=== PATIENT | male | born 1980 ===

== ENCOUNTER 2017-12-15 12:44 | Emergency (ER) | payer BC ==
[2017-12-15 13:00] VITALS: BMI 29.0
[2017-12-15 13:06] VITALS: RESP 18; TEMP 98.9
--- NOTE | 2017-12-15 14:44 | ED PDOC ---
Arrival/HPI - General Chief Complaint: Lower Extremity Problem/Injury Time Seen by Provider: 12/15/17 14:04 Historian: Patient, Spouse - History of Present Illness Narrative History of Present Illness (Text): 12/15/17 14:44 This 37 yo male with pmh htn, allergic to Motrin, presents to this Emergency department complaining of right heel pain x 3 days. Patient denies trauma, skin rash, leg swelling, recent travel, calf pain, or ankle pain. Time/Duration: Other (3 days) Quality: Aching, Burning Context: Home Past Medical History - Provider Review Nursing Documentation Reviewed: Yes - Infectious Disease Hx of Infectious Diseases: None - Tetanus Immunization Tetanus Immunization: Unknown - Cardiac Hx Hypertension: Yes - Pulmonary Hx Respiratory Disorders: No - Neurological Hx Neurological Disorder: No - HEENT Hx HEENT Disorder: No - Renal Hx Renal Disorder: No - Endocrine/Metabolic Hx Endocrine Disorders: No - Hematological/Oncological Hx Blood Disorders: No - Integumentary Hx Dermatological Disorder: No - Musculoskeletal/Rheumatological Hx Musculoskeletal Disorders: No - Gastrointestinal Hx Gastrointestinal Disorders: No - Genitourinary/Gynecological Hx Genitourinary Disorders: No - Psychiatric Hx Psychophysiologic Disorder: No Hx Substance Use: No - Surgical History Hx Cholecystectomy: Yes - Anesthesia Hx Anesthesia: Yes Hx Anesthesia Reactions: No Hx Malignant Hyperthermia: No - Suicidal Assessment Feels Threatened In Home Enviroment: No Family/Social History - Physician Review Nursing Documentation Reviewed: Yes Family/Social History: Other (noncontributory) Smoking Status: Heavy Smoker > 10 Cigarettes Daily Hx Alcohol Use: No Hx Substance Use: No Hx Substance Use Treatment: No Allergies/Home Meds Allergies/Adverse Reactions: Allergies ibuprofen [From Motrin] Allergy (Verified 12/15/17 13:00) RASH Home Medications: Home Meds Medication Instructions Recorded Confirmed Amlodipine Bes/Olmesartan Med 1 tab PO DAILY 12/15/17 12/15/17 [Germaine 10-40 mg Tablet] Review of Systems - Review of Systems Constitutional: Normal. absent: Fatigue, Weight Change, Fevers, Night Sweats Eyes: Normal ENT: Normal Respiratory: Normal Cardiovascular: Normal Gastrointestinal: Normal Genitourinary Male: Normal Musculoskeletal: Other (see hpi) Skin: Normal Neurological: Normal Endocrine: Normal Hemo/Lymphatic: Normal Psychiatric: Normal Physical Exam Vital Signs Temp Pulse Resp BP Pulse Ox 12/15/17 12:45 98.9 F 81 18 125/82 96 Temperature: Afebrile Blood Pressure: Normal Pulse: Regular Respiratory Rate: Normal Appearance: Positive for: Well-Appearing, Non-Toxic, Comfortable Pain Distress: None Mental Status: Positive for: Alert and Oriented X 3 - Systems Exam Head: Present: Atraumatic, Normocephalic Pupils: Present: PERRL Extroacular Muscles: Present: EOMI Conjunctiva: Present: Normal Mouth: Present: Moist Mucous Membranes Neck: Present: Normal Range of Motion Respiratory/Chest: Present: Clear to Auscultation, Good Air Exchange. No: Respiratory Distress, Accessory Muscle Use Cardiovascular: Present: Regular Rate and Rhythm, Normal S1, S2. No: Murmurs Abdomen: Present: Normal Bowel Sounds. No: Tenderness, Distention, Peritoneal Signs Back: Present: Normal Inspection Upper Extremity: Present: Normal Inspection. No: Cyanosis, Edema Lower Extremity: Present: NORMAL PULSES, Normal ROM, Neurovascularly Intact, Capillary Refill < 2 s, Other ((+) pes planus. (+) mild tenderness on dominique sole aspect of right foot near anterior heel. No lesion, abscess. Rodriguez test was negative, no calf tenderness, no leg swelling/edema, no posterior ankle tenderness.). No: Edema, CALF TENDERNESS, Anais's Sign, Swelling, Erythema, Deformity, Temperature Abnormalties Neurological: Present: GCS=15, CN II-XII Intact, Speech Normal, Motor Func Grossly Intact, Normal Sensory Function, Normal Cerebellar Funct, Gait Normal Skin: Present: Warm, Dry, Normal Color. No: Rashes Psychiatric: Present: Alert, Oriented x 3, Normal Insight, Normal Concentration Medical Decision Making ED Course and Treatment: 12/15/17 14:44 I reviewed the risk of using Prednisone with patient which includes AVN, osteoporosis, diabetes, glaucoma, renal failure, liver failure, or worsen of rash. He understand he could stop Prednisone once rash improved 12/15/17 15:28 Patient was recommended to f/u [facility] if symptoms becomes chronic or persist. Use crutches, RICE. To stretch foot every morning, use plantar fasciitis boot at bedtime, and to use good shoe wear with arch support. 12/15/17 15:35 Patient is allergic to NSAIDs, I will recommended Prednisone for 3 more days only. Re-evaluation Time: 15:30 Reassessment Condition: Re-examined, Improved - RAD Interpretation Narrative RAD Interpretations (Text): 12/15/17 15:33 Foot x-rays: (+) posterior heel spur. no Fx. Radiology Orders: 12/15/17 14:43 FOOT RIGHT 3 VIEWS ROUTINE [RAD] Stat - Medication Orders Current Medication Orders: Discontinued Medications Prednisone (Prednisone Tab) 60 mg PO STAT ONE Stop: 12/15/17 14:44 Last Admin: 12/15/17 15:08 Dose: 60 mg Tramadol HCl (Ultram) 50 mg PO STAT STA Stop: 12/15/17 14:44 Last Admin: 12/15/17 15:08 Dose: 50 mg MAR Pain Assessment Document 12/15/17 15:08 GMD (Rec: 12/15/17 15:08 GMD [id number]) Pain Reassessment Is this a pain reassessment? No Sleep Is patient sleeping during reassessment? No Presence of Pain Presence of Pain Yes Disposition/Present on Arrival - Present on Arrival Any Indicators Present on Arrival: No History of DVT/PE: No History of Uncontrolled Diabetes: No Urinary Catheter: No History of Decub. Ulcer: No History Surgical Site Infection Following: None - Disposition Have Diagnosis and Disposition been Completed?: Yes Diagnosis: Plantar fasciitis of right foot, Pes planus of both feet Disposition: HOME/ ROUTINE Disposition Time: 15:31 Patient Plan: Transfer To Patient Problems: Current Active Problems Problem Status Onset Pes planus of both feet Acute Plantar fasciitis of right foot Acute Condition: GOOD Discharge Instructions (ExitCare): Plantar Fasciitis (ED) Additional Instructions: Call private doctor for follow up visit in 1-2 days. Call prepress specialist office for revaluation. use crutches till pain improves. Remove leatha bandage at bedtime. Return to emergency if pain worsen. Prescriptions: Acetaminophen with Codeine [Tylenol with Codeine #3 Tablet] 1 each PO Q6H PRN # 12 tablet PRN Reason: Pain, Severe (8-10) Prednisone [Deltasone] 60 mg PO DAILY #9 tablet Referrals: Ernesto Doyle MD [Primary Care Provider] - Follow up with primary Tamara Morfin DPM [Staff Provider] - Follow up with primary Forms: [employer] (Romanian), WORK NOTE
--- NOTE | 2017-12-15 15:43 | RAD ---
PROCEDURE: Right Foot Radiographs. HISTORY: pain COMPARISON: None. FINDINGS: BONES: Bone alignment and mineralization are normal. There is no acute displaced fracture or bone destruction. There is a prominent dorsal calcaneal enthesophyte. JOINTS: Normal. SOFT TISSUES: Normal. OTHER FINDINGS: None. IMPRESSION: No acute fracture or dislocation.
[2017-12-15 15:48] VITALS: BP 126/79; PULSE 78; O2SAT 100
== END 2017-12-15 15:49 | disposition home or self-care (01) ==
LOC: ED 12:44
DX: M72.2 Plantar fascial fibromatosis (principal); M21.42 Flat foot [pes planus] (acquired), left foot; M21.41 Flat foot [pes planus] (acquired), right foot

== ENCOUNTER 2018-05-12 13:20 | Emergency (ER) | payer BC ==
[2018-05-12 13:20] VITALS: BMI 29.0
[2018-05-12 13:39] VITALS: RESP 18; TEMP 98.2; O2SAT 98
--- NOTE | 2018-05-12 13:55 | ED PDOC ---
Arrival/HPI - General Historian: Patient, Spouse - History of Present Illness Time/Duration: 24 hours Symptom Onset: Sudden Symptom Course: Worsening Quality: Aching, Pressure Severity Level: 6 Activities at Onset: Light Context: Home <Rajwinder Barry - Last Filed: 05/13/18 10:54> <AngelineEran - Last Filed: 05/14/18 13:56> - General Chief Complaint: Eye Problem Time Seen by Provider: 05/12/18 13:39 - History of Present Illness Narrative History of Present Illness (Text): 05/12/18 13:55 Pt is 37 yr old male who presents to the emergency department for left eyelid swelling x 1 day. Pt says he was in the yard yesterday cutting grass and noticed after, the left upper eyelid began to swell. Reports using OTC Visine for allergies but no change in status. When he woke up this morning, the lashes were 'glued' together from a white discharge. Also states that last week he had a similar episode with the right eye which resolved on its own. Denies allergies , trauma, eye pain, blurred vision, colored dishcarge, fever, chills, headache, SOB, CP, or any other complaints. (Rajwinder Barry) Past Medical History - Provider Review Nursing Documentation Reviewed: Yes - Travel History Have you recently traveled outside [place] w/in the past 3 mons?: No - Infectious Disease Hx of Infectious Diseases: None - Tetanus Immunization Tetanus Immunization: Unknown - Cardiac Hx Hypertension: Yes - Pulmonary Hx Respiratory Disorders: No - Neurological Hx Neurological Disorder: No - HEENT Hx HEENT Disorder: No - Renal Hx Renal Disorder: No - Endocrine/Metabolic Hx Endocrine Disorders: No - Hematological/Oncological Hx Blood Disorders: No - Integumentary Hx Dermatological Disorder: No - Musculoskeletal/Rheumatological Hx Musculoskeletal Disorders: No - Gastrointestinal Hx Gastrointestinal Disorders: No - Genitourinary/Gynecological Hx Genitourinary Disorders: No - Psychiatric Hx Psychophysiologic Disorder: No Hx Substance Use: No - Surgical History Hx Cholecystectomy: Yes - Anesthesia Hx Anesthesia: Yes Hx Anesthesia Reactions: No Hx Malignant Hyperthermia: No - Suicidal Assessment Feels Threatened In Home Enviroment: No <Rajwinder Barry - Last Filed: 05/13/18 10:54> Family/Social History - Physician Review Nursing Documentation Reviewed: Yes Family/Social History: Unknown Family HX Smoking Status: Heavy Smoker > 10 Cigarettes Daily Hx Alcohol Use: No Hx Substance Use: No Hx Substance Use Treatment: No <Rajwinder Barry - Last Filed: 05/13/18 10:54> Allergies/Home Meds <Rajwinder Barry - Last Filed: 05/13/18 10:54> <Eran Marcus - Last Filed: 05/14/18 13:56> Allergies/Adverse Reactions: Allergies ibuprofen [From Motrin] Allergy (Verified 05/12/18 13:25) RASH Home Medications: Home Meds Medication Instructions Recorded Confirmed Amlodipine Bes/Olmesartan Med 1 tab PO DAILY 12/15/17 05/12/18 [Germaine 10-40 mg Tablet] Review of Systems - Review of Systems Constitutional: Normal. absent: Fatigue, Weight Change, Fevers Eyes: Normal, Other (periorbital edema with clear d/c on the left eye). absent : Vision Changes, Photophobia, Eye Pain ENT: Normal. absent: Hearing Changes Respiratory: Normal. absent: SOB Cardiovascular: Normal. absent: Chest Pain Gastrointestinal: Normal. absent: Abdominal Pain Genitourinary Male: Normal Musculoskeletal: Normal Skin: Normal. absent: Rash Neurological: Normal. absent: Headache, Dizziness, Focal Weakness Endocrine: Normal Hemo/Lymphatic: Normal Psychiatric: Normal <Rajwinder Barry - Last Filed: 05/13/18 10:54> Physical Exam Vital Signs Reviewed: Yes Temperature: Afebrile Blood Pressure: Normal Pulse: Regular Respiratory Rate: Normal Appearance: Positive for: Well-Appearing, Non-Toxic, Comfortable Pain Distress: Mild Mental Status: Positive for: Alert and Oriented X 3 - Systems Exam Head: Present: Atraumatic, Normocephalic Pupils: Present: PERRL. No: Sluggish, Non-Reactive Extroacular Muscles: Present: EOMI. No: Gaze Palsy, Entrapment Conjunctiva: Present: Normal, Injected, Other (periorbital edema with clear d/c , left eye) Mouth: Present: Moist Mucous Membranes Neck: Present: Normal Range of Motion Respiratory/Chest: Present: Clear to Auscultation, Good Air Exchange. No: Respiratory Distress, Accessory Muscle Use, Wheezes, Decreased Breath Sounds Cardiovascular: Present: Regular Rate and Rhythm, Normal S1, S2. No: Murmurs Abdomen: No: Tenderness, Distention, Peritoneal Signs Upper Extremity: Present: Normal Inspection. No: Cyanosis, Edema Lower Extremity: No: Edema Neurological: Present: GCS=15, CN II-XII Intact, Speech Normal, Gait Normal Skin: Present: Warm, Dry, Normal Color. No: Rashes Lymphatic: No: Cervical Adenopathy Psychiatric: Present: Alert, Oriented x 3, Normal Insight, Normal Concentration <Rajwinder Barry - Last Filed: 05/13/18 10:54> Vital Signs Temp Pulse Resp BP Pulse Ox 05/12/18 16:00 83 18 125/72 98 05/12/18 13:23 98.2 F 88 18 127/70 98 Medical Decision Making <Rajwinder Barry - Last Filed: 05/13/18 10:54> <Eran Marcus - Last Filed: 05/14/18 13:56> ED Course and Treatment: 05/12/18 14:06 Impression Pt is 37 yr old male who presents to the emergency department for left eyelid swelling x [address] w/o contrast to R/O orbital cellulitis assess and dispo Progress note 05/12/18 15:02 IMPRESSION: Mild left-sided periorbital soft tissue swelling likely representing a preseptal cysts periorbital cellulitis. No evidence of postseptal extension of inflammation. Mild mucoperiosteal inflammatory changes left maxillary antrum with minimal mid linear mucosal thickening right maxillary antrum Discussed results with pt and spouse; advised Augmentin x 10 days and warm compresses over the eyes F/u with recommended director project management in the next 24-48 hrs Advised good hand hygiene and avoid sharing towels and touching eyes (Rajwinder Barry) Patient with NO pain with eye movements. No fever. No nausea. No headache, no proptosis. Currently no purulent drainage. Very minimal left eye conjunctival injection. ? allergic component to symptoms advised warm compresses however stressed antibiotics for possible periorbital cellulitis. CT AND EXAM currently not consistent with orbital cellulitis. No visual acuity or visual field deficits. Advised follow-up with opthamologist. (Eran Marcus) - RAD Interpretation Narrative RAD Interpretations (Text): 05/12/18 15:02 HISTORY: R/O Orbital Cellulitis COMPARISON: None. TECHNIQUE: Contiguous axial CT images of the maxillofacial bones were obtained without contrast. Coronal and sagittal reformats were generated. Radiation dose: Total exam DLP = 915.22 mGy-cm. This CT exam was performed using one or more of the following dose reduction techniques: Automated exposure control, adjustment of the mA and/or kV according to patient size, and/or use of iterative reconstruction technique. FINDINGS: NASAL BONES: Unremarkable the). ORBITS: There is minor left periorbital soft tissue swelling, all which appears be preseptal in location. Findings may represent a cellulitis. No evidence of postseptal on inflammatory changes. Orbits and contents otherwise unremarkable. Globes intact and lenses appropriately located. There are no retrobulbar hemorrhages or collections. Optic nerves and extraocular musculature unremarkable. PARANASAL SINUSES/ MASTOIDS: There appears to be a relatively large lobulated mucous retention cyst left maxillary antrum with minimal linear mucosal thickening as well. . Minimal mucosal thickening right maxillary antrum. . Minor mucosal thickening ethmoid air complex. MAXILLA: Unremarkable. MANDIBLE/ TEMPOROMANDIBULAR JOINTS: Unremarkable. SKULL BASE: Unremarkable. TEMPORAL BONES: Middle ears and mastoid grossly unremarkable. OTHER FINDINGS: None. IMPRESSION: Mild left-sided periorbital soft tissue swelling likely representing a preseptal cysts periorbital cellulitis. No evidence of postseptal extension of inflammation. Mild mucoperiosteal inflammatory changes left maxillary antrum with minimal mid linear mucosal thickening right maxillary antrum (Rajwinder Barry) Radiology Orders: 05/12/18 13:54 ORBITS/ FACIALS W/O CONTRAST [CT] Stat - Medication Orders Current Medication Orders: Discontinued Medications Amoxicillin/Clavulanate Potassium (Augmentin 875 Mg-125 Mg Tab) 1 tab PO STAT STA PRN Reason: Protocol Stop: 05/12/18 15:45 Last Admin: 05/12/18 15:58 Dose: 1 tab Disposition/Present on Arrival - Present on Arrival Any Indicators Present on Arrival: Yes History of DVT/PE: No History of Uncontrolled Diabetes: No Urinary Catheter: No History of Decub. Ulcer: No History Surgical Site Infection Following: None - Disposition Have Diagnosis and Disposition been Completed?: Yes Disposition Time: 15:24 Patient Plan: Discharge <Rajwinder Barry - Last Filed: 05/13/18 10:54> - Present on Arrival Any Indicators Present on Arrival: No <Eran Marcus - Last Filed: 05/14/18 13:56> - Disposition Diagnosis: Blepharitis of eyelid of left eye, Periorbital cellulitis of left eye Disposition: HOME/ ROUTINE Condition: STABLE Discharge Instructions (ExitCare): Blepharitis, Cellulitis (ED) Additional Instructions: THELMA MILAN, thank you for letting us take care of you today. Your provider was Eran Marcus MD and ANABELLE Barry and you were treated for LEFT EYELID SWELLING ( PERIORBITAL CELLULITIS). The emergency medical care you received today was directed at your acute symptoms. If you were prescribed any medication, please fill it and take as directed. It may take several days for your symptoms to resolve. Return to the Emergency Department if your symptoms worsen, do not improve, or if you have any other problems. Please see your Primary Care Doctor in the next few days for follow up. If eye inflammations continues to worsen, return to the ED. Please contact your doctor or call one of the physicians/clinics you have been referred to that are listed on the Patient Visit Information form that is included in your discharge packet. Bring any paperwork you were given at discharge with you along with any medications you are taking to your follow up visit. Our treatment cannot replace ongoing medical care by a primary care provider outside of the emergency department. Thank you for allowing the [email or web address] team to be part of your care today. If you had an X-Ray or CT scan: A Radiologist will review the ED reading if any change in treatment is needed we will contact you. Prescriptions: Amoxicillin/Clavulanate [Augmentin 875 MG-125 MG] 1 tab PO BID 10 Days #20 tab Referrals: Jamil Orr MD [Staff Provider] - Follow up with primary Forms: [employer] ([place]), WORK NOTE
--- NOTE | 2018-05-12 14:53 | CT ---
PROCEDURE: CT MAXILLOFACIAL BONES WITH CONTRAST HISTORY: R/O Orbital Cellulitis COMPARISON: None. TECHNIQUE: Contiguous axial CT images of the maxillofacial bones were obtained without contrast. Coronal and sagittal reformats were generated. Radiation dose: Total exam DLP = 915.22 mGy-cm. This CT exam was performed using one or more of the following dose reduction techniques: Automated exposure control, adjustment of the mA and/or kV according to patient size, and/or use of iterative reconstruction technique. FINDINGS: NASAL BONES: Unremarkable the). ORBITS: There is minor left periorbital soft tissue swelling, all which appears be preseptal in location. Findings may represent a cellulitis. No evidence of postseptal on inflammatory changes. Orbits and contents otherwise unremarkable. Globes intact and lenses appropriately located. There are no retrobulbar hemorrhages or collections. Optic nerves and extraocular musculature unremarkable. PARANASAL SINUSES/ MASTOIDS: There appears to be a relatively large lobulated mucous retention cyst left maxillary antrum with minimal linear mucosal thickening as well. . Minimal mucosal thickening right maxillary antrum. . Minor mucosal thickening ethmoid air complex. MAXILLA: Unremarkable. MANDIBLE/ TEMPOROMANDIBULAR JOINTS: Unremarkable. SKULL BASE: Unremarkable. TEMPORAL BONES: Middle ears and mastoid grossly unremarkable. OTHER FINDINGS: None. IMPRESSION: Mild left-sided periorbital soft tissue swelling likely representing a preseptal cysts periorbital cellulitis. No evidence of postseptal extension of inflammation. Mild mucoperiosteal inflammatory changes left maxillary antrum with minimal mid linear mucosal thickening right maxillary antrum
[2018-05-12] MEDS ORDERED: Amoxicillin-Clav 875-125 mg Tab PO STA (15:44)
[2018-05-12 16:33] VITALS: BP 125/72; PULSE 83
== END 2018-05-12 16:00 | disposition home or self-care (01) ==
LOC: ED 13:20
DX: H01.006 Unspecified blepharitis left eye, unspecified eyelid (principal); L03.213 Periorbital cellulitis; F17.210 Nicotine dependence, cigarettes, uncomplicated; I10 Essential (primary) hypertension